=== PATIENT | female | born 1945 | race Caucasian/White ===

== ENCOUNTER 2024-07-01 17:38 | Emergency (ER) | payer MEDICARE, SELFPAY ==
[2024-07-01 17:44] VITALS: BP 137/72; PULSE 85; RESP 18; TEMP 36.4; O2SAT 98
--- NOTE | 2024-07-01 17:49 | ED.GENADULT ---
HPI - General Adult General Chief complaint: Headache Stated complaint: sinus infection Time Seen by Provider: 07/01/24 17:48 History of Present Illness HPI narrative: 79-year-old female presents with sinus congestion, pressure and nasal drainage x1 week. Patient denies fevers. Patient states she has been taking Flonase and Mucinex with minimal relief. Patient denies fevers. Patient has no other symptoms Related Data Home Medications Medication Instructions Recorded Confirmed aspirin 81 mg capsule 81 mg PO DAILY 04/15/24 04/15/24 lisinopril 40 mg tablet 40 mg PO DAILY 04/15/24 04/15/24 rosuvastatin 20 mg tablet 20 mg PO DAILY 04/15/24 04/15/24 Allergies Allergy/AdvReac Type Severity Reaction Status Date / Time Environment seasonal Allergy Mild Unknown Uncoded 07/01/24 17:39 Review of Systems Review of Systems: A 10 system review of systems was completed on the patient and is negative except for what is stated in the HPI. Nursing and ancillary documentation was reviewed. PMFSH Social History Social History Smoking status: Never smoker Alcohol intake: never Living arrangements: alone Spiritual care concerns: No Exam Narrative: GENERAL: Well-appearing, well-nourished, and in no acute distress. HEAD: Normocephalic, atraumatic. Frontal or maxillary sinus tenderness EYES: PERRLA and EOMI. ENT: Nares clear, no rhinorrhea or epistaxis. Mucous membranes moist., fluid behind bilateral tympanic membranes NECK: Supple. CHEST: Clear to auscultation. No respiratory distress. HEART: Regular rate and rhythm. No murmur heard. Normal peripheral pulses. ABDOMEN: Soft, nontender, nondistended, normal active bowel sounds. EXTREMITIES: Normal range of motion. No edema. SKIN: Warm, dry, no rash. NEURO: No focal deficits. Alert and oriented x3. PSYCH: Normal mood and affect. Course Course Emergency Course: Patient has symptoms of a sinusitis will start on Augmentin Vital Signs Vital signs: Vital Signs Temperature 36.4 C 07/01/24 17:44 Pulse Rate 85 07/01/24 17:44 Respiratory Rate 18 07/01/24 17:44 Blood Pressure 137/72 07/01/24 17:44 Pulse Oximetry 98 07/01/24 17:44 Temperature 36.4 C 07/01/24 17:44 Pulse Rate 85 07/01/24 17:44 Respiratory Rate 18 07/01/24 17:44 Blood Pressure 137/72 07/01/24 17:44 Pulse Oximetry 98 07/01/24 17:44 Medical Decision Making MDM Narrative Medical decision making narrative: Physical exam shows sinusitis Vital Signs Vital Signs: Vital Signs Temperature 36.4 C 07/01/24 17:44 Pulse Rate 85 07/01/24 17:44 Respiratory Rate 18 07/01/24 17:44 Blood Pressure 137/72 07/01/24 17:44 Pulse Oximetry 98 07/01/24 17:44 Temperature 36.4 C 07/01/24 17:44 Pulse Rate 85 07/01/24 17:44 Respiratory Rate 18 07/01/24 17:44 Blood Pressure 137/72 07/01/24 17:44 Pulse Oximetry 98 07/01/24 17:44 Discharge Plan Discharge Clinical Impression: Sinusitis Patient Disposition: Home, Self-Care Condition: Stable Instructions: Antibiotic Form, Sinusitis (ED) Additional Instructions: Take medications as prescribed Return for worsening symptoms Continue flonase and claritin Prescriptions: New amoxicillin-pot clavulanate [Augmentin] 500-125 mg tablet 1 tablet PO Q12H Qty: 14 0RF No Action lisinopril 40 mg tablet 40 mg PO DAILY rosuvastatin 20 mg tablet 20 mg PO DAILY aspirin 81 mg Capsule 81 mg PO DAILY Follow-up/Referrals: Kevin,Dolores Cuello DO [Primary Care Provider] - 07/04/24 Time of Disposition: 17:56
== END 2024-07-01 18:51 | disposition home or self-care (01) ==
LOC: ANHED 18:02
PROVIDERS: Emergency Provider Nurse Practitioner Family; PCP Family Medicine Sports Medicine
DX: J32.9 Chronic sinusitis, unspecified (principal)
CPT/HCPCS: 99283